=== PATIENT | male | born 1945 | race Caucasian/White ===

== ENCOUNTER → 2023-05-10 | Outpatient (CLI) | payer MEDICARE, SELFPAY ==
[2023-05-10 16:18] LABS: PSA,Total- Diagnostic 5.08 ng/mL (0.0-4.0)
== END | disposition home or self-care (01) ==
LOC: LAB 14:26
PROVIDERS: Referring Provider Urology; Visit Provider Urology
DX: N40.1 Benign prostatic hyperplasia with lower urinary tract symptoms (principal)
CPT/HCPCS: 36415; 84153